=== PATIENT | female | born 1990 | race Caucasian/White ===

== ENCOUNTER 2017-07-26 21:31 | Inpatient (IN) | payer OTHER ==
[~2017-07-26] VITALS: Ht 165.1 cm; Wt 86.4 kg
[2017-07-26] MEDS: LACTATED RINGERS 1,000 ML IV SCH (22:00)
[2017-07-26] MEDS: D5%-LACTATED RINGERS 1,000 ML IV SCH (22:40)
[2017-07-26] MEDS ORDERED: OXYTOCIN 30U/ 0.9% NaCL 500ML 500 ML IV ONE (22:40)
[2017-07-26] MEDS ORDERED: FENTANYL PF 100 MCG/2ML ONE (22:51)
[2017-07-26] MEDS ORDERED: FENTANYL PF 100 MCG/2ML IV PRN (23:00)
[2017-07-26] MEDS ORDERED: ONDANSETRON 2MG/ML, 2ML IVPush PRN (23:00)
[2017-07-26] MEDS ORDERED: CALCIUM CARBONATE 500 MG TAB.CHEW PO PRN (23:00)
[2017-07-26] MEDS: FENTANYL PF 100 MCG/2ML IVPush PRN (23:06)
[2017-07-26 23:13] LABS: HEMATOCRIT 35.6 % (34.6-47.8); HEMOGLOBIN 11.9 g/dL (11.7-16.4); WHITE BLOOD COUNT 15.1 x10^3/uL (3.4-10)
[2017-07-26] MEDS ORDERED: NEWBORN KIT ONE (23:18)
[2017-07-26] MEDS ORDERED: OXYTOCIN 30U/ 0.9% NaCL 500ML 500 ML ONE (23:19)
[2017-07-27] MEDS ORDERED: FENTANYL PF 100 MCG/2ML ONE (00:01)
[2017-07-27] MEDS: FENTANYL PF 100 MCG/2ML IVPush PRN (00:03)
[2017-07-27] MEDS ORDERED: LACTATED RINGERS 1,000 ML IVBOLUS PRN ×2 (00:30→01:00)
[2017-07-27] MEDS: LACTATED RINGERS 1,000 ML IV SCH ×4 (00:44→20:02)
[2017-07-27] MEDS ORDERED: FENTANYL/BUPIV./NS/PF 250 ML EPIDCONT SCH (00:44)
[2017-07-27] MEDS ORDERED: FENTANYL/BUPIV./NS/PF 250 ML EPIDCONT ONE ×2 (00:46→12:40)
[2017-07-27] MEDS ORDERED: BUPIVACAINE/PF 0.25% ONE (00:46)
[2017-07-27] MEDS ORDERED: EPHEDRINE 50 MG/ML, 1ML IVPush PRN (01:00)
[2017-07-27] MEDS ORDERED: NALOXONE 0.4 MG/ML, 1ML IVPush PRN (01:00)
[2017-07-27] MEDS ORDERED: MISOPROSTOL 200 MCG TABLET ONE (03:03)
[2017-07-27] MEDS: D5%-LACTATED RINGERS 1,000 ML IV SCH (06:01)
[2017-07-27] MEDS ORDERED: ACETAMINOPHEN 325 MG TABLET ONE (11:14)
[2017-07-27] MEDS ORDERED: ACETAMINOPHEN 500 MG TABLET PO PRN (11:30)
[2017-07-27] MEDS ORDERED: ACETAMINOPHEN 325 MG TABLET PO PRN ×3 (11:30→20:00)
[2017-07-27] MEDS ORDERED: IBUPROFEN 600 MG TABLET ONE (19:56)
[2017-07-27] MEDS ORDERED: OXYcodone/APAP 5/325MG TABLET ONE (19:57)
[2017-07-27] MEDS ORDERED: OXYTOCIN 30U/ 0.9% NaCL 500ML 500 ML ONE (19:57)
[2017-07-27] MEDS ORDERED: MISOPROSTOL 200 MCG TABLET PR PRN (20:00)
[2017-07-27] MEDS ORDERED: METOCLOPRAMIDE 5 MG/ML, 2ML IV PRN (20:00)
[2017-07-27] MEDS ORDERED: OXYcodone/APAP 5/325MG TABLET PO PRN (20:00)
[2017-07-27] MEDS ORDERED: METHYLERGONOVINE 0.2 MG/ML IM PRN (20:00)
[2017-07-27] MEDS: OXYTOCIN 30U/ 0.9% NaCL 500ML 500 ML IV SCH (20:01)
[2017-07-27] MEDS: OXYcodone/APAP 5/325MG TABLET PO PRN (20:01)
[2017-07-27] MEDS: IBUPROFEN 600 MG TABLET PO PRN (20:01)
[2017-07-27 21:30] VITALS: BP 95/74
[2017-07-28 01:30] VITALS: BP 117/70
[2017-07-28 03:24] LABS: HEMATOCRIT 32.1 % (34.6-47.8); HEMOGLOBIN 10.5 g/dL (11.7-16.4)
[2017-07-28] MEDS: OXYcodone/APAP 5/325MG TABLET PO PRN ×5 (03:31→21:59)
[2017-07-28] MEDS: IBUPROFEN 600 MG TABLET PO PRN ×3 (03:31→18:14)
[2017-07-28 04:45] VITALS: BP 110/68
[2017-07-28 08:00] VITALS: BP 106/76
[2017-07-28] MEDS: DOCUSATE 100 MG CAPSULE PO PRN ×2 (08:09→21:59)
[2017-07-28] MEDS: PRENATAL VIT/IRON/FA 1 EACH TABLET PO SCH (08:09)
[2017-07-28] MEDS: OXYTOCIN 30U/ 0.9% NaCL 500ML 500 ML IV SCH ×2 (09:00→19:00)
[2017-07-28 12:00] VITALS: BP 118/81
[2017-07-28 16:30] VITALS: BP 112/70
[2017-07-28 21:05] VITALS: BP 111/75
[2017-07-29] MEDS: IBUPROFEN 600 MG TABLET PO PRN ×3 (02:17→14:12)
[2017-07-29] MEDS: OXYcodone/APAP 5/325MG TABLET PO PRN ×3 (02:17→14:12)
[2017-07-29] MEDS: OXYTOCIN 30U/ 0.9% NaCL 500ML 500 ML IV SCH ×2 (05:00→10:21)
[2017-07-29] MEDS: PRENATAL VIT/IRON/FA 1 EACH TABLET PO SCH (07:44)
[2017-07-29 07:45] VITALS: BP 111/79
[2017-07-29] MEDS: DOCUSATE 100 MG CAPSULE PO PRN (07:45)
[2017-07-29] MEDS ORDERED: IBUP-1222 PO (15:25)
[2017-07-29] MEDS ORDERED: OXYC-302 PO (15:28)
== END 2017-07-29 18:17 | disposition home or self-care (01) | DRG 775 ==
LOC: LDOP 21:31 → LDIP 22:09 → 2NW 07-27 21:13
PROVIDERS: ADMIT Obstetrics & Gynecology; ATTEND Obstetrics & Gynecology
PROC: 10E0XZZ Delivery of Products of Conception, External Approach (ICD-10-PCS; principal; 2017-07-27)
PROC: 0KQM0ZZ Repair Perineum Muscle, Open Approach (ICD-10-PCS; 2017-07-27)
PROC: 3E033VJ Introduction of Other Hormone into Peripheral Vein, Percutaneous Approach (ICD-10-PCS; 2017-07-27)
DX: O77.0 Labor and delivery complicated by meconium in amniotic fluid (principal); O70.1 Second degree perineal laceration during delivery; Z37.0 Single live birth; Z3A.39 39 weeks gestation of pregnancy
CPT/HCPCS: 36415; 85025; 86850; 86900; 89060; J3010; J2590; J7120; J7121; Q0114

== ENCOUNTER 2018-05-08 21:31 | Observation (INO) | payer OTHER ==
[~2018-05-08] VITALS: Ht 165.1 cm; Wt 86.0 kg
[~2018-05-08 21:31] MED LIST: IBUP-1222 PO; OXYC-302 PO
[2018-05-08] MEDS ORDERED: LACTATED RINGERS 1,000 ML IV SCH (22:00)
[2018-05-08 22:36] LABS: BASOPHILS # (AUTO) 0.03 x10^3/uL (0-0.1); BASOPHILS % (AUTO) 0 % (0-1); EOSINOPHILS # (AUTO) 0.01 x10^3/uL (0-0.4); EOSINOPHILS % (AUTO) 0 % (1-7); LYMPHOCYTES # (AUTO) 1.66 x10^3/uL (1-3.4); LYMPHOCYTES % (AUTO) 13 % (22-44); MD NO; MEAN CORPUSCULAR HGB CONC 33.1 g/dL (32.4-35.8); MEAN CORPUSCULAR VOLUME 84.5 fL (80-100); MEAN PLATELET VOLUME 7.5 fL (7.4-10.4); MONOCYTES # (AUTO) 0.59 x10^3/uL (0.2-0.8); MONOCYTES % (AUTO) 5 % (2-9); NEUTROPHILS # (AUTO) 10.81 x10^3/uL (1.8-6.8); NEUTROPHILS % (AUTO) 83 % (42-75); PLATELET COUNT 328 x10^3/uL (130-400); RED BLOOD COUNT 3.75 x10^6/uL (3.82-5.3); RED CELL DISTRIBUTION WIDTH 15.6 % (9.6-15.2)
[2018-05-09] MEDS ORDERED: TERBUTALINE 1 MG/ML, 1ML ONE (00:07)
[2018-05-09] MEDS ORDERED: TERBUTALINE 1 MG/ML, 1ML SQ ONE (00:30)
== END 2018-05-09 03:20 | disposition home or self-care (01) ==
LOC: LDOP 21:31 → LDIP 22:05
PROVIDERS: ADMIT Obstetrics & Gynecology; ATTEND Obstetrics & Gynecology
DX: Z03.79 Encounter for other suspected maternal and fetal conditions ruled out (principal); Z87.891 Personal history of nicotine dependence; Z3A.32 32 weeks gestation of pregnancy
CPT/HCPCS: 36415; 59025; 76815; 85025; 85384; 85460; 96360; 96361; 96372; G0378; J3105; J7120

== ENCOUNTER 2018-06-22 00:58 | Outpatient (CLI) | payer OTHER ==
[~2018-06-22] VITALS: Ht 165.1 cm; Wt 94.5 kg
[2018-06-22 01:05] VITALS: BP 124/73
[2018-06-22] MEDS ORDERED: PREN1TAB28 PO (03:22)
== END 2018-06-22 03:27 | disposition home or self-care (01) ==
LOC: LDOP 00:58
PROVIDERS: ATTEND Obstetrics & Gynecology
DX: O26.893 Other specified pregnancy related conditions, third trimester (principal); Z3A.38 38 weeks gestation of pregnancy
CPT/HCPCS: 59025; 99211; G0463

== ENCOUNTER 2018-06-23 20:36 | Inpatient (IN) | payer OTHER ==
[~2018-06-23] VITALS: Ht 165.1 cm; Wt 94.5 kg
[~2018-06-23 20:36] MED LIST changes: +PREN1TAB28 PO
[2018-06-23 20:41] VITALS: BP 121/77
[2018-06-23] MEDS ORDERED: OXYTOCIN 30U/ 0.9% NaCL 500ML 500 ML IV ONE (22:48)
[2018-06-23] MEDS ORDERED: D5%-LACTATED RINGERS 1,000 ML IV SCH (22:48)
[2018-06-23] MEDS ORDERED: OXYTOCIN 30U/ 0.9% NaCL 500ML 500 ML IV PRN (22:48)
[2018-06-23] MEDS ORDERED: OXYTOCIN 30U/ 0.9% NaCL 500ML 500 ML ONE (22:54)
[2018-06-23] MEDS ORDERED: LIDOCAINE 1%, 50ML ONE (22:55)
[2018-06-23] MEDS ORDERED: NEWBORN KIT ONE (22:55)
[2018-06-23] MEDS ORDERED: MISOPROSTOL 200 MCG TABLET ONE (22:55)
[2018-06-23] MEDS ORDERED: FENTANYL PF 100 MCG/2ML IV PRN (23:00)
[2018-06-23] MEDS ORDERED: ALUMINUM/MAG/SIMETHICONE 30 ML UDC PO PRN (23:00)
[2018-06-23] MEDS ORDERED: FENTANYL PF 100 MCG/2ML IVPush PRN (23:00)
[2018-06-23] MEDS ORDERED: ONDANSETRON 2MG/ML, 2ML IVPush PRN (23:00)
[2018-06-23] MEDS ORDERED: CALCIUM CARBONATE 500 MG TAB.CHEW PO PRN (23:00)
[2018-06-23] MEDS ORDERED: TERBUTALINE 1 MG/ML, 1ML IVPush PRN (23:00)
[2018-06-23 23:11] LABS: BASOPHILS # (AUTO) 0.04 x10^3/uL (0-0.1); BASOPHILS % (AUTO) 0 % (0-1); EOSINOPHILS % (AUTO) 1 % (1-7); LYMPHOCYTES % (AUTO) 11 % (22-44); MD NO; MEAN CORPUSCULAR HEMOGLOBIN 25.7 pg (27.0-34.8); MEAN CORPUSCULAR HGB CONC 32.5 g/dL (32.4-35.8); MEAN PLATELET VOLUME 7.2 fL (7.4-10.4); MONOCYTES # (AUTO) 0.47 x10^3/uL (0.2-0.8); MONOCYTES % (AUTO) 4 % (2-9); NEUTROPHILS # (AUTO) 9.59 x10^3/uL (1.8-6.8); NEUTROPHILS % (AUTO) 83 % (42-75); PLATELET COUNT 379 x10^3/uL (130-400); RED BLOOD COUNT 3.82 x10^6/uL (3.82-5.3); RED CELL DISTRIBUTION WIDTH 18.2 % (9.6-15.2)
[2018-06-23] MEDS: LACTATED RINGERS 1,000 ML IV SCH (23:22)
[2018-06-24] MEDS ORDERED: FENTANYL/BUPIV./NS/PF 250 ML EPIDCONT SCH ×2 (00:22→02:23)
[2018-06-24] MEDS: LACTATED RINGERS 1,000 ML IV SCH ×3 (00:23→08:14)
[2018-06-24] MEDS ORDERED: FENTANYL PF 100 MCG/2ML ONE ×2 (01:13→01:19)
[2018-06-24] MEDS ORDERED: BUPIVACAINE 0.25% ONE ×2 (01:13→01:19)
[2018-06-24] MEDS ORDERED: LIDOCAINE/PF 1.5%-EPI 1:200K, 30ML ONE (01:19)
[2018-06-24] MEDS ORDERED: METOCLOPRAMIDE 5 MG/ML, 2ML ONE (01:36)
[2018-06-24] MEDS ORDERED: ONDANSETRON 4 MG TABLET ONE (01:38)
[2018-06-24] MEDS ORDERED: ONDANSETRON ODT 4 MG ONE ×2 (01:46→05:05)
[2018-06-24] MEDS ORDERED: ONDANSETRON 4 MG TABLET PO ONE (02:00)
[2018-06-24] MEDS ORDERED: LACTATED RINGERS 1,000 ML IV SCH (02:23)
[2018-06-24] MEDS ORDERED: LACTATED RINGERS 1,000 ML IVBOLUS PRN (02:30)
[2018-06-24] MEDS ORDERED: EPHEDRINE 50 MG/ML, 1ML IVPush PRN (02:30)
[2018-06-24] MEDS ORDERED: ONDANSETRON 2MG/ML, 2ML IVPush PRN (02:30)
[2018-06-24] MEDS ORDERED: ONDANSETRON ODT 4 MG PO ONE (04:30)
[2018-06-24] MEDS ORDERED: OXYTOCIN 30U/ 0.9% NaCL 500ML 500 ML IV PRN (06:15)
[2018-06-24] MEDS: OXYTOCIN 30U/ 0.9% NaCL 500ML 500 ML IV SCH ×2 (11:36→21:36)
[2018-06-24] MEDS ORDERED: ACETAMINOPHEN 325 MG TABLET PO PRN (12:00)
[2018-06-24] MEDS ORDERED: MISOPROSTOL 200 MCG TABLET PR PRN (12:00)
[2018-06-24] MEDS ORDERED: ONDANSETRON 2MG/ML, 2ML IV PRN (12:00)
[2018-06-24] MEDS ORDERED: DOCUSATE 100 MG CAPSULE PO PRN (12:00)
[2018-06-24] MEDS ORDERED: OXYcodone IR 5MG TABLET PO PRN (12:00)
[2018-06-24 14:05] VITALS: BP 99/63
[2018-06-24] MEDS: IBUPROFEN 600 MG TABLET PO PRN ×2 (16:32→23:06)
[2018-06-24 19:03] LABS: BASOPHILS % (AUTO) 0 % (0-1); EOSINOPHILS # (AUTO) 0.02 x10^3/uL (0-0.4); EOSINOPHILS % (AUTO) 0 % (1-7); LYMPHOCYTES # (AUTO) 0.98 x10^3/uL (1-3.4); LYMPHOCYTES % (AUTO) 7 % (22-44); MD NO; MEAN CORPUSCULAR HEMOGLOBIN 26.6 pg (27.0-34.8); MEAN CORPUSCULAR VOLUME 80.7 fL (80-100); MEAN PLATELET VOLUME 7.4 fL (7.4-10.4); MONOCYTES # (AUTO) 0.47 x10^3/uL (0.2-0.8); MONOCYTES % (AUTO) 3 % (2-9); NEUTROPHILS # (AUTO) 12.08 x10^3/uL (1.8-6.8); NEUTROPHILS % (AUTO) 89 % (42-75); PLATELET COUNT 312 x10^3/uL (130-400); RED BLOOD COUNT 3.37 x10^6/uL (3.82-5.3); RED CELL DISTRIBUTION WIDTH 18.3 % (9.6-15.2)
[2018-06-24 19:15] VITALS: BP 98/68
[2018-06-24] MEDS ORDERED: DIPH,PERTUSS(ACELL),TET VAC/PF NC IM-VACC ONE ×2 (21:33→22:00)
[2018-06-25 00:19] VITALS: BP 109/73
[2018-06-25 04:23] VITALS: BP 110/79
[2018-06-25] MEDS: IBUPROFEN 600 MG TABLET PO PRN ×2 (06:17→15:44)
[2018-06-25] MEDS: OXYcodone/APAP 5/325MG TABLET PO PRN ×2 (08:09→15:44)
[2018-06-25 08:32] VITALS: BP 112/78
[2018-06-25] MEDS ORDERED: PRENATAL VIT/IRON/FA 1 EACH TABLET PO SCH (09:00)
[2018-06-25] MEDS ORDERED: IBUP-1222 PO (09:32)
== END 2018-06-25 19:19 | disposition home or self-care (01) | DRG 775 ==
LOC: LDOP 20:36 → LDIP 23:30 → 2NW 06-24 14:05
PROVIDERS: ADMIT Obstetrics & Gynecology; ATTEND Obstetrics & Gynecology
PROC: 10E0XZZ Delivery of Products of Conception, External Approach (ICD-10-PCS; principal; 2018-06-24)
PROC: 0HQ9XZZ Repair Perineum Skin, External Approach (ICD-10-PCS; 2018-06-24)
PROC: 3E0R3BZ Introduction of Anesthetic Agent into Spinal Canal, Percutaneous Approach (ICD-10-PCS; 2018-06-24)
PROC: 00HU33Z Insertion of Infusion Device into Spinal Canal, Percutaneous Approach (ICD-10-PCS; 2018-06-24)
DX: O70.0 First degree perineal laceration during delivery (principal); Z3A.38 38 weeks gestation of pregnancy; Z37.0 Single live birth
CPT/HCPCS: 36415; 85025; 86850; 86900; 90715; G0378; J3010; J3490; Q0162; J2590; J7120

== ENCOUNTER 2019-11-11 12:39 | Emergency (ER) | payer OTHER ==
[~2019-11-11] VITALS: Ht 165.1 cm; Wt 70.0 kg
[2019-11-11] MEDS ORDERED: KETOROLAC 30 MG/1 ML ONE (13:21)
[2019-11-11] MEDS ORDERED: PROCHLORPERAZINE 5 MG/ML, 2ML ONE (13:21)
[2019-11-11] MEDS ORDERED: DIPHENHYDRAMINE 50 MG/ML, 1ML ONE (13:21)
[2019-11-11] MEDS ORDERED: SODIUM CHLORIDE 0.9% 1,000ML IVBOLUS ONE (13:30)
[2019-11-11] MEDS ORDERED: KETOROLAC 30 MG/1 ML IVPush ONE (13:30)
[2019-11-11] MEDS ORDERED: DIPHENHYDRAMINE 50 MG/ML, 1ML IVPush ONE (13:30)
[2019-11-11] MEDS ORDERED: SODIUM CHLORIDE FLUSH 10ML SYR IVF ONE (13:30)
[2019-11-11] MEDS ORDERED: PROCHLORPERAZINE 5 MG/ML, 2ML IVPush ONE (13:30)
--- NOTE | 2019-11-11 13:36 | NUR ---
PT MEDICATED, PROVIDED WITH PILLOW AND WARM BLANKETS. RESTING AT THIS TIME. CALL LIGHT IN REACH.
--- NOTE | 2019-11-11 14:16 | NUR ---
PT STILL C/O 10/10 PAIN IN HER HEAD, RESTING MORE COMFORTABLY BUT DENIES RELIEF. SIGNIFICANT OTHER AT BEDSIDE. ERP NOTIFIED AND AT BEDSIDE NOW.
[2019-11-11] MEDS ORDERED: SODIUM CHLORIDE 0.9% 1,000 ML IV ONE (14:19)
[2019-11-11] MEDS ORDERED: ONDANSETRON 2MG/ML, 2ML IVPush ONE (14:30)
[2019-11-11] MEDS ORDERED: ONDANSETRON 2MG/ML, 2ML ONE (14:36)
--- NOTE | 2019-11-11 15:10 | NUR ---
REPORT TO AJNEE ESQUIVEL.
[2019-11-11 15:15] VITALS: BP 110/77
--- NOTE | 2019-11-11 15:50 | NUR ---
PT RESTING IN BED, BLANKET PROVIDED.
--- NOTE | 2019-11-11 16:29 | NUR ---
DISCHARGE INSTRUCTIONS REVIEWED
== END 2019-11-11 16:31 | disposition home or self-care (01) ==
LOC: ED 16:25
DX: G43.009 Migraine without aura, not intractable, without status migrainosus (principal); R11.2 Nausea with vomiting, unspecified; R05 Cough; H53.149 Visual discomfort, unspecified; F17.200 Nicotine dependence, unspecified, uncomplicated
CPT/HCPCS: 96361; 96374; 96375; 99283; J0780; J1200; J1885; J7030

== ENCOUNTER 2021-01-17 23:01 | Outpatient (CLI) | payer OTHER ==
[~2021-01-17] VITALS: Ht 167.6 cm; Wt 102.3 kg
[~2021-01-17 23:01] MED LIST changes: -OXYC-302 PO; +OXYC1TAB14 PO
[2021-01-17 23:16] VITALS: BP 127/75
[2021-01-18 00:22] LABS: MICROSCOPIC INDICATED
== END 2021-01-18 01:56 | disposition home or self-care (01) ==
LOC: LDOP 23:01
PROVIDERS: ATTEND Obstetrics & Gynecology
DX: O26.893 Other specified pregnancy related conditions, third trimester (principal); M54.9 Dorsalgia, unspecified; R51.9 Headache, unspecified; Z3A.35 35 weeks gestation of pregnancy
CPT/HCPCS: 59025; 81001; 82962; 87086; 87147; 89060; Q0114